=== PATIENT | female | born 1995 | race Hispanic/Latino ===

== ENCOUNTER 2020-01-24 17:14 | Inpatient (IN) | payer MEDICAID ==
[~2020-01-24] VITALS: Ht 172.7 cm; Wt 97.1 kg
[2020-01-24 18:14] LABS: APPEARANCE,URINE Clear (CLEAR); BILIRUBIN,URINE Small (NEGATIVE); COLOR,URINE Dark Yellow (YELLOW); GLUCOSE, URINE (UA) Negative (NEGATIVE); KETONES,URINE Trace mg/dL (NEGATIVE); LEUKOCYTE ESTERASE ,URINE Trace (NEGATIVE); NITRATE,URINE Negative (NEGATIVE); OCCULT BLOOD,URINE Negative (NEGATIVE); PROTEIN,URINE POS 2+ mg/dL (NEGATIVE)
[2020-01-24] MEDS ORDERED: MEPERIDINE-PF 50 MG/ML SYG IM PRN (18:15)
[2020-01-24] MEDS ORDERED: EPHEDRINE SULFATE 50 MG/ML AMPULE IVP PRN (18:15)
[2020-01-24] MEDS ORDERED: DINOPROSTONE 10 MG VAGINAL SUPP VG SCH (18:15)
[2020-01-24] MEDS ORDERED: LACTATED RINGERS 500 ML 500 ML IV PRN (18:15)
[2020-01-24] MEDS ORDERED: NALOXONE HCL 0.4 MG/1 ML ML IV PRN (18:15)
[2020-01-24] MEDS ORDERED: PROMETHAZINE HCL 25 MG/ML 1ML AMPULE IM PRN (18:15)
[2020-01-24 18:29] LABS: BACTERIA,URINE Few /HPF (None Seen); MUCUS,URINE Few LPF (None Seen); SQUAMOUS EPITHELIAL CELL,UR Few /HPF (0-2)
[2020-01-24 18:30] LABS: CALCIUM OXALATE CRYSTALS,UR Few /LPF (None Seen)
[2020-01-24] MEDS ORDERED: OXYTOCIN-LR 20 UNITS/1000 ML 1,000 ML IV SCH (18:30)
[2020-01-24 18:37] LABS: HEMATOCRIT 34.5 % (36-48); MEAN CORPUSCULAR HEMOGLOBIN 27.3 pg (27.0-33.0); MEAN CORPUSCULAR VOLUME 82.5 fL (79-99); RED BLOOD CELL COUNT(AUTO) 4.18 MIL/uL (4.00-5.50); RED CELL DISTRIBUTION WIDTH 14.1 % (11.0-15.5); WHITE BLOOD COUNT (AUTO) 6.9 K/uL (4.8-10.8)
[2020-01-24 20:14] VITALS: BP 115/70
[2020-01-24] MEDS: LACTATED RINGERS 1000ML 1,000 ML IV PRN (20:17)
[2020-01-25] MEDS: LACTATED RINGERS 1000ML 1,000 ML IV PRN (03:08)
[2020-01-25] MEDS ORDERED: FENTANYL CITRATE PF 50 MCG/1 ML 2ML VIAL ONE (09:49)
[2020-01-25] MEDS ORDERED: OXYTOCIN-LR 20 UNITS/1000 ML 1,000 ML IV SCH (13:45)
[2020-01-25] MEDS ORDERED: DIPH,PERTUSS(ACELL),TET VAC/PF 0.5 ML VIAL IM PRN (13:45)
[2020-01-25] MEDS ORDERED: MEASLES/MUMPS/RUBELLA VACCINE, LIVE 0.5 ML/VIAL SQ PRN (13:45)
[2020-01-25] MEDS ORDERED: WITCH HAZEL 1 PAD TP PRN (13:45)
[2020-01-25] MEDS ORDERED: BENZOCAINE/LANOLIN/ALOE VERA 60 ML AEROSOL TP PRN (13:45)
[2020-01-25] MEDS ORDERED: ACETAMINOPHEN-CODEINE 300/30MG TAB PO PRN (13:45)
[2020-01-25] MEDS ORDERED: LANOLIN 30GM OINTMENT TP PRN (13:45)
[2020-01-25] MEDS ORDERED: ACETAMINOPHEN 325 MG TAB PO PRN (13:45)
[2020-01-25] MEDS ORDERED: METHYLERGONOVINE MALEATE 0.2 MG/1 ML ML IM SCH (15:45)
[2020-01-25] MEDS ORDERED: METHYLERGONOVINE MALEATE 0.2 MG/1 ML ML ONE (15:45)
[2020-01-25] MEDS ORDERED: MISOPROSTOL 200 MCG TABLET PR SCH (15:45)
[2020-01-25] MEDS ORDERED: MISOPROSTOL 200 MCG TABLET ONE (15:49)
[2020-01-25 16:10] VITALS: BP 122/71
[2020-01-25] MEDS ORDERED: PREN-196 PO (16:15)
[2020-01-25] MEDS: IBUPROFEN 600 MG TABLET PO PRN ×2 (16:18→21:48)
[2020-01-25 19:52] VITALS: BP 119/64
[2020-01-25] MEDS: DOCUSATE SODIUM 100 MG CAP PO SCH (21:47)
[2020-01-25 23:30] VITALS: BP 115/60
[2020-01-26 03:32] VITALS: BP 99/50
[2020-01-26 06:47] LABS: HEMATOCRIT 33.5 % (36-48); MEAN CORPUSCULAR HEMOGLOBIN 26.6 pg (27.0-33.0); MEAN CORPUSCULAR HGB CONC 31.9 g/dL (32.0-36.0); MEAN CORPUSCULAR VOLUME 83.3 fL (79-99); RED BLOOD CELL COUNT(AUTO) 4.02 MIL/uL (4.00-5.50); RED CELL DISTRIBUTION WIDTH 14.1 % (11.0-15.5); WHITE BLOOD COUNT (AUTO) 7.5 K/uL (4.8-10.8)
[2020-01-26 07:13] LABS: HEPATITIS Bs ANTIGEN SCREEN P Negative (Negative)
[2020-01-26 07:51] VITALS: BP 110/57
[2020-01-26] MEDS: DOCUSATE SODIUM 100 MG CAP PO SCH (09:24)
[2020-01-26] MEDS: IBUPROFEN 600 MG TABLET PO PRN (09:25)
[2020-01-26 11:40] VITALS: BP 116/51
--- NOTE | 2020-01-26 15:30 | NUR ---
PATIENT LEFT UNIT VIA WHEELCHAIR WITH BABY IN ARMS. PERSONAL VEHICLE USED FOR TRANSPORTATION ACCOMPANIED BY SIGNIFICANT OTHER. BABY SECURE IN CARSEAT. NO COMPLAINTS OR CONCERNS ADDRESSED FROM PATIENT ON DISCHARGE.
== END 2020-01-26 14:55 | disposition home or self-care (01) | DRG 560 ==
LOC: LDH 17:14 → WSH 01-25 16:05
PROVIDERS: ADMIT Obstetrics & Gynecology; ATTEND Obstetrics & Gynecology
PROC: 3E0R3BZ Introduction of Anesthetic Agent into Spinal Canal, Percutaneous Approach (ICD-10-PCS; principal; 2020-01-25)
PROC: 10E0XZZ Delivery of Products of Conception, External Approach (ICD-10-PCS; 2020-01-25)
PROC: 00HU33Z Insertion of Infusion Device into Spinal Canal, Percutaneous Approach (ICD-10-PCS; 2020-01-25)
PROC: 10907ZC Drainage of Amniotic Fluid, Therapeutic from Products of Conception, Via Natural or Artificial Opening (ICD-10-PCS; 2020-01-25)
PROC: 3E0P7VZ Introduction of Hormone into Female Reproductive, Via Natural or Artificial Opening (ICD-10-PCS; 2020-01-25)
PROC: 0KQM0ZZ Repair Perineum Muscle, Open Approach (ICD-10-PCS; 2020-01-25)
PROC: 3E0234Z Introduction of Serum, Toxoid and Vaccine into Muscle, Percutaneous Approach (ICD-10-PCS; 2020-01-25)
PROC: 3E0134Z Introduction of Serum, Toxoid and Vaccine into Subcutaneous Tissue, Percutaneous Approach (ICD-10-PCS; 2020-01-25)
PROC: 3E033VJ Introduction of Other Hormone into Peripheral Vein, Percutaneous Approach (ICD-10-PCS; 2020-01-25)
DX: O69.81X0 Labor and delivery complicated by cord around neck, without compression, not applicable or unspecified (principal); Z37.0 Single live birth; O70.1 Second degree perineal laceration during delivery; Z3A.39 39 weeks gestation of pregnancy; O71.82 Other specified trauma to perineum and vulva; Z23 Encounter for immunization
CPT/HCPCS: 36415; 81001; 85027; 86592; 86701; 86850; 86900; 86901; 87340; 87390; A4314; G0378; J2175; J2210; J2550; J2590; J3010

== ENCOUNTER 2021-05-09 15:30 | Emergency (ER) | payer MEDICAID ==
[~2021-05-09] VITALS: Ht 170.2 cm; Wt 99.8 kg
[~2021-05-09 15:30] MED LIST: PREN-196 PO
[2021-05-09 15:33] VITALS: BP 140/77
[2021-05-09] MEDS ORDERED: TETRACAINE HCL 0.5% 4 ML OPHTH SOLN OP SCH (16:00)
[2021-05-09] MEDS ORDERED: [UNRECOGNIZED DRUG - CODE] MC (16:46)
[2021-05-09] MEDS ORDERED: ACET1TAB25 PO (16:46)
[2021-05-09] MEDS ORDERED: ERYT1OIN7 OP (16:46)
[2021-05-09] MEDS ORDERED: FLUORESCEIN SODIUM 1 STRIP STRIP OP SCH (17:00)
== END 2021-05-09 17:23 | disposition home or self-care (01) ==
LOC: EDH 15:30
DX: S05.01XA Injury of conjunctiva and corneal abrasion without foreign body, right eye, initial encounter (principal); Z79.899 Other long term (current) drug therapy; X58.XXXA Exposure to other specified factors, initial encounter; Y93.89 Activity, other specified; Y92.89 Other specified places as the place of occurrence of the external cause; Y99.8 Other external cause status